=== PATIENT | female | born 1990 | race African-American/Black ===

== ENCOUNTER 2020-10-03 08:00 | Outpatient (CLI) | payer BC | END 2020-10-03 23:59 | disposition home or self-care (01) | LOC: LAB.S 08:00 | PROVIDERS: ATTEND Emergency Medicine | DX: R06.00 Dyspnea, unspecified (principal) | CPT/HCPCS: 36415; 85379 ==

== ENCOUNTER 2020-10-03 18:16 | Emergency (ER) | payer BC ==
[2020-10-03] MEDS ORDERED: IOVERSOL 320 100 ML VIAL IVP ONE ×2 (18:34→21:09)
[2020-10-03 18:53] LABS: BASOPHILS % (AUTO) 0.4 %; EOSINOPHILS # (AUTO) 0.1 10^3/uL (0.0-0.7); EOSINOPHILS % (AUTO) 2.5 %; LYMPHOCYTES # (AUTO) 1.4 10^3/uL (1.5-3.5); LYMPHOCYTES % (AUTO) 24.2 %; MEAN CORPUSCULAR HGB CONC 32.4 g/dL (32.0-36.0); MEAN CORPUSCULAR VOLUME 74.1 fL (81.0-99.0); MONOCYTES # (AUTO) 0.6 10^3/uL (0.0-1.0); MONOCYTES % (AUTO) 11.2 %; NEUTROPHILS # (AUTO) 3.5 10^3/uL (1.5-6.6); NEUTROPHILS % (AUTO) 61.3 %; PLT - PLATELET COUNT 257 10^3/uL (130-450); RED BLOOD COUNT 4.99 10^6/uL (4.20-5.40); RED CELL DISTRIBUTION WIDTH 13.1 % (12.0-15.0); WHITE BLOOD COUNT 5.7 x10^3/uL (4.8-10.8)
[2020-10-03 18:56] LABS: CREATININE 0.8 mg/dL (0.4-1.0); POTASSIUM 3.9 mmol/L (3.5-5.0)
[2020-10-03 19:21] LABS: INR 1.2 (0.8-1.2); PT - PROTHROMBIN TIME 13.7 secs (9.9-12.6)
--- NOTE | 2020-10-03 19:22 | CT Report ---
PROCEDURE: ANGIO CHEST W/WO INDICATIONS: Dyspnea, high dimer, PE protocol CONTRAST: IV CONTRAST: Optiray 320 ml: 80 PO CONTRAST: *NO PO CONTRAST TECHNIQUE: After the administration of intravenous contrast, images were acquired from the pulmonary apices to t he posterior costophrenic angles. 3-dimensional maximum intensity projection (MIP) coronal and sagit dennis reformats were then acquired through the thorax. For radiation dose reduction, the following was used: automated exposure control, adjustment of mA and/or kV according to patient size. COMPARISON: None FINDINGS: Image quality: Excellent. Pulmonary arteries: Pulmonary artery thrombus is present within the distal aspect of the right main p ulmonary artery extending into the upper middle and lower lobes most predominantly in the lower lobes . There are minimal scattered areas of filling defect identified in distal segmental branches within both the left upper and lower lobes. Lungs and pleura: Patchy bibasilar opacities are present. No pleural effusions or pneumothorax. Cent ral and peripheral airways are patent. Mediastinum: Heart size is normal, without pericardial effusion. No mediastinal or hilar adenopathy . Thoracic aorta is normal in caliber and enhancement. Esophagus is normal in caliber, without hiat al hernia. Bones and chest wall: No suspicious bony lesions. Ribs and thoracic spine appear intact throughout. No axillary or supraclavicular adenopathy. The thyroid is normal in size and there are no incident al findings. Abdomen: Visualized upper abdominal solid organs appear normal in the early arterial phase of enhanc ement. IMPRESSION: 1. Bilateral pulmonary emboli most significant on the right including thrombus within the distal aspe ct of the right main pulmonary artery. No visualized right heart strain. 2. Bibasilar patchy opacities. Pelvis could be related to infection, given presence of pulmonary embo li, areas of infarction should be considered. The above findings were discussed with Dr. Monty Luna on 10/03/2020 at 7:18pm. Reviewed by: Ava Latif MD on 10/03/2020 7:21 PM PDT Approved by: Ava Latif MD on 10/03/2020 7:21 PM PDT Station ID: [id number]
[2020-10-03 19:34] LABS: PARTIAL THROMBOPLASTIN TIME 23.1 secs (24.9-33.3)
[2020-10-03] MEDS ORDERED: APIXABAN 5 MG TABLET PO STA (19:48)
--- NOTE | 2020-10-03 20:00 | ED Physician Documentation ---
History of Present Illness - Stated complaint Stated Complaint: SOA,BACK PX - Chief complaint Chief Complaint: Resp - Additonal information Additional information: 29-year-old female presents emergency department for evaluation of shortness of air and right-sided back pain that began about 3 days ago. However she reports that for about the last 10 days to 2 weeks she has had intermittent left-sided chest pain especially when she would run. She has found herself increasingly fatigued and short of air. She has had no cough no fevers. No unilateral leg swelling or recent surgeries. She did travel to [facility] from [place] 3 days ago. She is on control. She does not know her family medical history. However patient has no previous history of blood clots or cancer. Patient was initially seen today at the walk-in clinic for this back pain. Screening D-dimer was greater than 1000 therefore she was advised to come to the ER for pulmonary embolus rule out. Review of Systems Constitutional: denies: Fever, Chills Eyes: reports: Reviewed and negative Nose: reports: Reviewed and negative Throat: reports: Reviewed and negative Cardiac: reports: Chest pain / pressure. denies: Palpitations Respiratory: reports: Dyspnea. denies: Cough, Hemoptysis, Wheezing GI: denies: Abdominal Pain, Nausea, Vomiting : denies: Dysuria, Frequency, Hesitancy, Hematuria Skin: denies: Rash, Lesions Musculoskeletal: reports: Back pain. denies: Neck pain Neurologic: denies: Generalized weakness, Focal weakness PD PAST MEDICAL HISTORY - Past Medical History Past Medical History: No - Past Surgical History Past Surgical History: Yes General: Cholecystectomy Derm: Other - Present Medications Home Medications: Ambulatory Orders Medication Instructions Recorded Confirmed Apixaban [Eliquis] 5 mg PO BID #70 tablet 10/03/20 Ethynodiol D-Ethinyl Estradiol 1 tab PO DAILY PM 10/03/20 10/03/20 [Kelnor 1-35 28 Tablet] - Allergies Allergies/Adverse Reactions: Allergies Allergy/AdvReac Type Severity Reaction Status Date / Time No Known Drug Allergies Allergy Verified 10/03/20 18:32 - Social History Does the pt smoke?: No Smoking Status: Never smoker Does the pt drink ETOH?: Yes Does the pt have substance abuse?: No - Immunizations Immunizations are current?: Yes PD ED PE EXPANDED - General General: Alert, No acute distress - Cardiac Cardiac: Regular Rate, Radial strong equal, Pedal strong equal, Cap refill < 2 sec. No: Murmur Present - Respiratory Respiratory: Clear to ausultation magalis. No: Distress, Labored - Abdomen Abdomen: Normal Bowel sounds. No: Tender to palpation - Derm Derm: Normal color, Warm and dry. No: Rash - Extremities Extremities: Normal. No: Deformity, Tenderness, Pedal edema bilateral, Right calf TTP/cord, Left calf TTP/cord Results - Vitals Vitals: Vital Signs - 24 hr 10/03/20 18:26 Temperature 36.8 C Heart Rate 89 Respiratory 16 Rate Blood Pressure 123/61 O2 Saturation 99 Oxygen O2 Source Room air - Labs Labs: Laboratory Tests 10/03/20 10/03/20 10/03/20 18:39 18:39 19:14 WBC 5.7 RBC 4.99 Hgb 12.0 Hct 37.0 MCV 74.1 L MCH 24.0 L MCHC 32.4 RDW 13.1 Plt Count 257 MPV 9.0 Neut # (Auto) 3.5 Lymph # (Auto) 1.4 L [place] # (Auto) 0.6 Eos # (Auto) 0.1 Baso # (Auto) 0.0 Absolute Nucleated RBC 0.00 Nucleated RBC % 0.0 PT 13.7 H INR 1.2 APTT 23.1 L Sodium 135 Potassium 3.9 Chloride 98 L Carbon Dioxide 27 Anion Gap 10.0 BUN 14 Creatinine 0.8 Estimated GFR (MDRD) 86 L Glucose 97 Calcium 9.0 - Rads (name of study) CT angio chest Radiology: Final report received (Bilateral pulmonary emboli most significant on the right including thrombus within the distal aspect of the right main pulmonary artery. No visualized heart strain. Bibasilar patchy opacities could be related to infection however given the presence of pulmonary emboli areas of infarction possible) PD MEDICAL DECISION MAKING - ED course Complexity details: reviewed results, re-evaluated patient, d/w patient ED course: This is a 29-year-old female the presents the emergency department with 3 days increasing shortness of air and right-sided chest pain however she has been h aving intermittent symptoms on the left chest for about 7 days to 2 weeks. She is on OCP. No previous history of blood clot or cancer. Recently traveled to [facility]. Given that she is adopted she does not have a family history. Screening labs at walk-in clinic showed a D-dimer greater than 1000 thus she presented to the ER. Unfortunately the CT does show bilateral pulmonary emboli most significant in the right distal pulmonary artery. However there are no visualized signs of right heart strain. Here in the emergency department though she is mildly labored she is not hypoxic or tachypneic. Her vital signs are stable. We discussed the finding of a pulmonary embolus. Patient will be started on Eliquis initially 10 mg twice daily for 7 days then transition to 5 mg twice daily. She is advised very close follow-up with her primary care provider when she returns to [place] she may benefit from hematology oncology consultation. Return precautions for concerns of falls or trauma related to Eliquis as well as concerns of worsening symptoms were discussed at length with patient. Departure - Departure Disposition: 01 Home, Self Care Clinical Impression: Bilateral pulmonary embolism Condition: Stable Record reviewed to determine appropriate education?: Yes Instructions: Embolism Pulmonary Prescriptions: Apixaban [Eliquis] 5 mg PO BID #70 tablet Comments: Cheryle you are seen in the emergency department today for shortness of air and chest pain. Unfortunately the CAT scan does confirm that you have bilateral pulmonary emboli or blood clots. This may be related to the oral contraceptive you use to regulate your menstrual cycle. We are starting you on a medication called Eliquis/apixaban. This is an anticoagulant that prevents you from forming clots. Over time the clot in your lung will breakdown in your shortness of air will get better. This usually takes at least a few weeks. Initially we would like you to take the Eliquis 10 mg twice daily for 7 days then begin taking 5 mg twice daily. I have given you enough medication to last 1 month. When you return to [place] it is critical that you follow-up with your primary care provider. You may need to be referred to a economic developer which is a blood doctor. Most first time pulmonary embolus patients need to be anticoagulated for 3 to 6 months. If you have any sudden severe headache, you fall and strike your head, you have black or bloody stools, unexplained bleeding or you feel that your chest pain and shortness of air is worsening please return immediately to the ER for a second evaluation.
[2020-10-03 20:22] VITALS: BP 129/75
== END 2020-10-03 20:22 | disposition home or self-care (01) ==
LOC: ED 18:16
DX: I26.99 Other pulmonary embolism without acute cor pulmonale (principal)
CPT/HCPCS: 36415; 71275; 80048; 85025; 85610; 85730; 99284; A9270; Q9967